=== PATIENT | female | born 1960 | race Native Hawaiian/Other Pacific Islander ===

== ENCOUNTER 2020-05-13 09:49 | Outpatient (CLI) | payer BC | END 2020-05-13 19:36 | disposition home or self-care (01) | LOC: RAD 09:49 | PROVIDERS: ATTEND Podiatrist | DX: Z01.810 Encounter for preprocedural cardiovascular examination (principal); Z01.811 Encounter for preprocedural respiratory examination; Z01.812 Encounter for preprocedural laboratory examination ==

== ENCOUNTER 2020-11-12 08:15 | Outpatient (CLI) | payer BC | END 2020-11-12 19:04 | disposition home or self-care (01) | LOC: RAD 08:15 → LABW 08:15 → RAD 19:04 | PROVIDERS: ATTEND Podiatrist | DX: Z01.810 Encounter for preprocedural cardiovascular examination (principal); Z01.811 Encounter for preprocedural respiratory examination; Z01.812 Encounter for preprocedural laboratory examination ==

== ENCOUNTER 2022-04-20 08:46 | Outpatient (CLI) | payer OTHER | END 2022-04-20 19:18 | disposition home or self-care (01) | LOC: MRI 08:46 | PROVIDERS: ATTEND Internal Medicine | DX: M54.16 Radiculopathy, lumbar region (principal) ==

== ENCOUNTER 2022-11-02 08:58 | Outpatient (CLI) | payer BC | END 2022-11-02 18:54 | disposition home or self-care (01) | LOC: MAMMO 08:58 | PROVIDERS: ATTEND Obstetrics & Gynecology | DX: Z12.31 Encounter for screening mammogram for malignant neoplasm of breast (principal) ==